=== PATIENT | male | born 2000 | race Caucasian/White ===

== ENCOUNTER 2023-03-04 16:00 | Outpatient (CLI) | payer SELFPAY ==
[2023-03-04 21:43] LABS: CHLAMYDIA TRACHOMATIS DNA NEGATIVE (NEGATIVE); NEISSERIA GONORRHOEAE DNA NEGATIVE (NEGATIVE); TRICHOMONAS VAGINALIS DNA NEGATIVE (NEGATIVE)
== END 2023-03-04 16:15 | disposition home or self-care (01) ==
LOC: LAB.N 16:00
PROVIDERS: ATTEND Physician Assistant Medical
DX: Z11.3 Encounter for screening for infections with a predominantly sexual mode of transmission (principal)
CPT/HCPCS: 87491; 87591; 87661

== ENCOUNTER 2023-04-26 06:45 | Outpatient (CLI) | payer MEDICAID | END 2023-04-26 06:46 | disposition critical access hospital (66) | LOC: EMS 06:45 | DX: R10.31 Right lower quadrant pain (principal) | CPT/HCPCS: A0425; A0427 ==

== ENCOUNTER 2023-04-26 07:10 | Emergency (ER) | payer MEDICAID, OTHER ==
[2023-04-26] MEDS ORDERED: SODIUM CHLORIDE 0.9% 1,000 ML IV STA (07:24)
[2023-04-26] MEDS ORDERED: ONDANSETRON 4 MG/2 ML VIAL IVP STA (07:24)
[2023-04-26] MEDS ORDERED: KETOROLAC 30 MG/ML VIAL IVP STA (07:24)
--- NOTE | 2023-04-26 07:25 | ED Physician Documentation ---
History of Present Illness - Chief complaint Chief Complaint: Abd Pain - History obtained from History obtained from: Patient - Additonal information Additional information: The patient comes to the emergency department chief complaint of right flank pain. He states the pain started around 4:00 this morning and has gone from his right CVA area progressively down toward his right pelvis. He is also states he feels a tingling sensation in the tip of his penis. The patient has a history of kidney stones and states this feels just like his previous ones. He was nauseated earlier when the pain was really bad, but he states he feels a lot better after the medics gave him some fentanyl in route. The patient denies any fevers or chills. No dysuria. He is otherwise a healthy chuckie. PD PAST MEDICAL HISTORY - Past Medical History Past Medical History: Yes Cardiovascular: None Respiratory: None Neuro: None Endocrine/Autoimmune: None GI: None : Kidney stones HEENT: None Psych: None Musculoskeletal: None Derm: None - Past Surgical History Past Surgical History: Yes HEENT: Tonsil/Adenoidectomy - Present Medications Home Medications: Ambulatory Orders Medication Instructions Recorded Confirmed HYDROcod/ACETAM 5/325 [[place] 5/325] 1 - 2 tablet PO Q6H PRN #10 tablet 04/26/23 Ibuprofen [Motrin] 800 mg PO Q8H PRN #30 tablet 04/26/23 Tamsulosin [Flomax] 0.4 mg PO DAILY #7 cap 04/26/23 - Allergies Allergies/Adverse Reactions: Allergies Allergy/AdvReac Type Severity Reaction Status Date / Time No Known Drug Allergies Allergy Verified 04/26/23 07:13 - Social History Does the pt smoke?: Yes Smoking Status: Current every day smoker Does the pt drink ETOH?: Yes Does the pt have substance abuse?: No - Immunizations Immunizations are current?: Yes PD ED PE NORMAL - Vitals Vital signs reviewed: Yes - General General: Alert and oriented X 3, No acute distress, Well developed/nourished - HEENT HEENT: Atraumatic, PERRL, EOMI, Moist mucous membranes - Neck Neck: Supple, no meningeal sign - Cardiac Cardiac: RRR, No murmur - Respiratory Respiratory: No respiratory distress, Clear bilaterally - Abdomen Abdomen: Soft, Non tender, Non distended - Derm Derm: Normal color, Warm and dry, No rash - Extremities Extremities: No deformity, No edema - Neuro Neuro: Other (Grossly intact) - Psych Psych: Normal mood, Normal affect Results - Vitals Vitals: Oxygen O2 Source Room air - Labs Labs: Laboratory Tests 04/26/23 08:25 Urine Color YELLOW Urine Clarity CLEAR Urine pH 5.5 Ur Specific [place] >=1.030 H Urine Protein 30 H Urine Glucose (UA) NEGATIVE Urine Ketones TRACE Urine Occult Blood LARGE H Urine Nitrite NEGATIVE Urine Bilirubin NEGATIVE Urine Urobilinogen 0.2 (NORMAL) Ur Leukocyte Esterase NEGATIVE Urine RBC TN Urine WBC 4-5 Ur Squamous Epith Cells NONE SEEN Urine Bacteria Rare Urine Mucus Moderate Strands Ur Microscopic Review INDICATED Urine Culture Comments NOT INDICATED - Rads (name of study) CT abd/pelv Relevant Findings:: Final report received, See rad report (R UVJ stone ) PD Medical Decision Making - ED course Complexity details: reviewed results, re-evaluated patient, considered differential, d/w patient ED course: The patient was given a liter of normal saline as well as a dose of Toradol. He was worked up with urinalysis and a CT scan of the abdomen and pelvis without contrast, which demonstrated a 2 mm R UVJ stone. I discussed the findings with the pt, who was still feeling much better. We have discussed symptomatic management at home, as well as the usual indications for return. Departure - Departure Disposition: 01 Home, Self Care Clinical Impression: Kidney stone on right side Condition: Stable Instructions: ED Stone Renal W Colic Prescriptions: Tamsulosin [Flomax] 0.4 mg PO DAILY #7 cap Ibuprofen [Motrin] 800 mg PO Q8H PRN #30 tablet PRN Reason: PAIN &/OR FEVER HYDROcod/ACETAM 5/325 [[place] 5/325] 1 - 2 tablet PO Q6H PRN #10 tablet PRN Reason: Pain Comments: Your CT scan shows a small, 2 mm stone that is right at the junction of the ureter and bladder and ready to pop into your bladder. This was expected to happen very soon, certainly sometime today. Please be sure you drink plenty of fluids to help assure the stone into your bladder where it can be urinated out. Your prescriptions have been electronically transmitted to the [facility] in [place]. Forms: PCP List Discharge Date/Time: 04/26/23 09:06
--- NOTE | 2023-04-26 08:18 | CT Report ---
PROCEDURE: ABDOMEN/PELVIS WO INDICATIONS: R flank pain TECHNIQUE: A CT scan of the abdomen and pelvis was performed without the use of intravenous contrast. Images we re recorded and evaluated at appropriate window settings. Reformats: coronal and sagittal. For radiat ion dose reduction, the following was used: automated exposure control, adjustment of mA and/or kV ac cording to patient size. COMPARISON: None. FINDINGS: Image quality: Good Lower chest: Mild basal atelectasis. Normal heart size. Solid organs: Liver is unremarkable. Gallbladder is unremarkable. No pathologic dilation of the bilia ry or pancreatic duct. No splenomegaly. No adrenal nodules. There are 2 punctate stones measuring 2 t o 3 mm in the lower pole the right kidney, nonobstructing. 1 mm left lower pole stone also seen. No c ollecting system dilation. At the right UVJ, there is a 2 mm stone. Vessels and lymph nodes: No abdominal aortic aneurysm. No pathologic lymph nodes by size criteria. Bowel and peritoneum: Small amount of fluid in the distal esophagus. No bowel obstruction. No patholo gic ascites. Appendix is nondilated. Body wall: Tiny fat-containing umbilical hernia. Pelvis: Bladder is unremarkable. Prostate not well evaluated on this study. Bones: No acute or suspicious finding. IMPRESSION: 2 mm right UVJ stone. No significant hydronephrosis. Nonobstructing lower pole bilateral tiny renal s tones also present. Reviewed by: Alejandro Goldsmith MD on 04/26/2023 8:16 AM PST Approved by: Alejandro Goldsmith MD on 04/26/2023 8:16 AM PST Station ID: [id number]
[2023-04-26 08:43] VITALS: BP 107/64; O2SAT 100
[2023-04-26 08:59] LABS: BILIRUBIN,URINE NEGATIVE (NEGATIVE); GLUCOSE, URINE (UA) NEGATIVE (NEGATIVE); KETONES,URINE (UA) TRACE mg/dL (NEGATIVE); LEUKOCYTE ESTERASE, URINE NEGATIVE (NEGATIVE); NITRITE,URINE NEGATIVE (NEGATIVE); OCCULT BLOOD,URINE LARGE (NEGATIVE); PH,URINE 5.5 PH (5.0-7.5); PROTEIN,URINE 30 mg/dL (NEGATIVE); UROBILINOGEN,URINE 0.2 (NORMAL) E.U./dL (NORMAL)
[2023-04-26 09:12] LABS: CLARITY,URINE CLEAR (CLEAR)
[2023-04-26 09:13] LABS: RBC,URINE TN /HPF (0-5); SQUAMOUS EPITHELIAL CELL,UR NONE SEEN (<= Few)
[2023-04-26 09:14] LABS: BACTERIA,URINE Rare /HPF (None Seen); MUCUS,URINE Moderate Strands
== END 2023-04-26 09:06 | disposition home or self-care (01) ==
LOC: EDUNIT# → ED 07:10
DX: N20.0 Calculus of kidney (principal); F17.200 Nicotine dependence, unspecified, uncomplicated; Z87.442 Personal history of urinary calculi
CPT/HCPCS: 81001; 81003; 87086; 96374; 99283

== ENCOUNTER 2023-11-24 12:40 | Outpatient (CLI) | payer MEDICAID ==
--- NOTE | 2023-11-24 18:45 | XRAY Report ---
PROCEDURE: Lumbar Spine 2-3V INDICATIONS: BACK PAIN TECHNIQUE: 3 views of the lumbar spine were acquired. COMPARISON: None. FINDINGS: Surgical change: None. Bones: 5 [id number] vertebrae are present. There is multilevel trace retrolisthesis. No vertebr al body compression fractures. No suspicious bony lesions. Trace disc space narrowing at L5-S1. Soft tissues: Overlying bowel gas pattern is normal. No suspicious soft tissue calcifications. IMPRESSION: No acute osseous abnormality. Reviewed by: Selene Mir MD on 11/24/2023 6:44 PM PDT Approved by: Selene Mir MD on 11/24/2023 6:44 PM PDT Station ID: [id number]
== END 2023-11-24 14:58 | disposition home or self-care (01) ==
LOC: DI.N 12:40
PROVIDERS: ATTEND Family Medicine
DX: M54.50 Low back pain, unspecified (principal)